=== PATIENT | female | born 1985 | race Caucasian/White ===

== ENCOUNTER 2017-08-20 11:37 | Emergency (ER) | payer OTHER ==
[~2017-08-20] VITALS: Ht 160 cm; Wt 75.0 kg
[~2017-08-20 11:37] MED LIST: PREN0.01 PO
[2017-08-20 11:39] VITALS: BP 150/84; PULSE 78; RESP 16; TEMP 97.7; O2SAT 100
[2017-08-20] MEDS ORDERED: PROM6.256 PO (13:51)
[2017-08-20] MEDS ORDERED: ZOFR4TAB3 SL (13:52)
--- NOTE | 2017-08-20 13:52 | PD ---
HPI Chief Complaint: Cold / Flu Symptoms Time Seen by Provider: 13:44 Travel History International Travel<30 days: No Contact w/Intl Traveler<30days: No Traveled to known affect area: No History of Present Illness HPI This is a 32-year-old female who presents to the emergency department with 5 days of productive cough with yellow sputum, constant, moderate severity, worse in the evenings associated with body aches and some fever. Her mother tested positive for influenza and her son was empirically treated about a week ago. She has no history of pulmonary disease and does not smoke. [facility] Past Medical History Narrative Medical adhd anxiety Social History Tobacco Use: No Allergies-Medications (Allergen,Severity, Reaction): Coded Allergies: No Known Allergies (Verified , 03/17/10) Uncoded Allergies: N (Allergy, Unknown, 03/20/03) NKA (Allergy, Unknown, 03/20/03) Reported Meds & Prescriptions Reported Meds & Active Scripts Active Reported Vit ( Plus) (Prenat Multivit/International Marketing Coordinator/Iron/Folic Ac) Tab 1 Tab PO DAILY Review of Systems Except as stated in HPI: all other systems reviewed are Neg Physical Exam Narrative GENERAL:Well appearing, no acute distress SKIN: Focused skin assessment warm and dry. HEAD: Atraumatic. Normocephalic. EYES: Pupils equal and round. No injection or drainage. ENT: Moist mucous membranes. Normal-appearing posterior pharynx. NECK: Trachea midline. CARDIOVASCULAR: Regular rate and rhythm. No murmur appreciated. RESPIRATORY: Clear to auscultation. Breath sounds equal bilaterally. GASTROINTESTINAL: Abdomen soft, non-tender, nondistended. MUSCULOSKELETAL: No obvious deformities. NEUROLOGICAL: Awake and alert. No obvious cranial nerve deficits. Moving all extremities. PSYCHIATRIC: Appropriate mood and affect; insight and judgment normal. Data Data Last Documented VS Vital Signs Date Time Temp Pulse Resp B/P (MAP) Pulse Ox O2 Delivery O2 Flow Rate FiO2 08/20/17 11:39 97.7 78 16 150/84 (106) 100 Orders Orders Influenzae A/B Antigen (08/20/17 11:56) MDM Medical Decision Making Medical Screen Exam Complete: Yes Emergency Medical Condition: Yes Interpretation(s) Influenza negative Differential Diagnosis Pneumonia, viral syndrome, influenza, bronchitis Narrative Course This is a 32-year-old female who presents to the emergency department with cough and some flulike symptoms. She has been sick for 5 days. Influenza test is negative. Patient is nontoxic appearing and has normal oxygen saturation. I suspect this is viral in etiology. Patient will be discharged with cough suppressant and was advised to increase her oral hydration. She also is reporting some nausea will be discharged with Zofran. Diagnosis Primary Impression: Viral bronchitis Patient Instructions: General Instructions Additional Instructions: If you develop severe chest pain, shortness of breath, sweating, lightheadedness , dizziness or difficulty breathing return to the emergency department immediately. Followup with your primary care physician in 2-3 days if your symptoms are not resolved. Med/Other Pt SpecificInfo: Prescription(s) given Scripts Promethazine-Codeine Liq (Promethazine-Codeine Liq) 6.25-10 Mg/5 Ml Syrp 5-10 ML PO Q6H Y for COUGH AND/OR COLD SYMPTOMS, #60 ML 0 Refills Prov: Treva Roger MD 08/20/17 Disposition: 01 DISCHARGE HOME Condition: Stable Treva Roger MD Aug 20, 2017 13:52
== END 2017-08-20 14:05 | disposition home or self-care (01) ==
LOC: NEPD 11:37
DX: J20.8 Acute bronchitis due to other specified organisms (principal); F90.9 Attention-deficit hyperactivity disorder, unspecified type; F41.9 Anxiety disorder, unspecified
CPT/HCPCS: 87804; 99283